=== PATIENT | female | born 1965 | race Caucasian/White ===

== ENCOUNTER → 2021-08-29 | Day surgery (SDC) | payer BC ==
[2021-08-29] VITALS (8 sets, daily range): BP systolic 106–131; BP diastolic 60–80
[~2021-08-29] VITALS: Ht 167.6 cm; Wt 94.2 kg
[~2021-08-29] MED LIST: BUPIVAcaine 0.5% inj/PF 30 ML ONE; BUPIVAcaine 0.5% inj/PF 30 ml vial IJ ONE; FENTANYL CITRATE/PF 50 MCG/1 ML VIAL ONE; NO HOME MEDS; ROPIVAcaine 0.5% (5mg/ml) 30ml vial ONE; VANCOMYCIN 1,500MG inj. 1,500 MG in dextrose 5% water 500ml 300 ML IV ONE; cefazolin/dext.iso 2gm/50ml IV ONE; famotidine 20mg tablet PO ONE; meperidine/PF 25mg/ml syringe IV PRN; midazolam 1 mg/ML 2ml injection ONE; morphine 2 MG/ML inj. syringe IV PRN; morphine 4 MG/ML inj SYRINge IV PRN; ondansetron/PF 4mg/2ml inj IV PRN; ondansetron/PF 4mg/2ml inj ONE; proCHLORperazine 10 MG/2 ml inj IV PRN; propofol inj 20 ML IV ONE; ringers solution, lacted 1,000 ML IV SCH
[2021-08-29 13:14] LABS: BASOPHILS % (AUTO) 0.7 % (0-1); EOSINOPHILS # (AUTO) 0.1 X10'3 (0-0.9); LYMPHOCYTES # (AUTO) 1.6 X10'3 (1.1-4.8); LYMPHOCYTES % (AUTO) 27.7 % (21-51); MEAN CORPUSCULAR HGB CONC 33.9 g/dL (33.0-36.5); MEAN CORPUSCULAR VOLUME 91.4 FL (78-98); MEAN PLATELET VOLUME 8.5 FL (7.4-10.4); MONOCYTES # (AUTO) 0.4 X10'3 (0-0.9); MONOCYTES % (AUTO) 6.8 % (2-12); NEUTROPHILS # (AUTO) 3.7 X10'3 (1.8-7.7); NEUTROPHILS % (AUTO) 63.8 % (42-75); PRE OP HEMATOCRIT 40.6 % (35.0-45.0); PRE OP HEMOGLOBIN 13.8 g/dL (12.0-16.0); PRE OP PLATELET COUNT 282 X10'3 (140-440); RED BLOOD COUNT 4.44 X10'6 (4.20-5.60); RED CELL DISTRIBUTION WIDTH 12.9 % (11.5-14.5)
[2021-08-29 13:48] LABS: ALANINE AMINOTRANSFERASE 46 U/L (12-78); ALBUMIN 3.9 G/DL (3.4-5.0); ALBUMIN/GLOBULIN RATIO 1.3 (1.1-1.5); ALKALINE PHOSPHATASE 67 IU/L (46-116); ANION GAP 10 (8-16); ASPARTATE AMINO TRANSFERASE 24 U/L (10-37); BILIRUBIN,TOTAL 0.6 MG/DL (0.1-1.0); BLOOD UREA NITROGEN 10 MG/DL (7-18); BUN/CREATININE RATIO 13.5 (6.6-38.0); CHLORIDE 106 MMOL/L (99-107); CREATININE 0.74 MG/DL (0.40-0.90); GLUCOSE 94 MG/DL (70-104); POTASSIUM 4.2 MMOL/L (3.5-5.1); SODIUM 143 MMOL/L (135-145); TOTAL CARBON DIOXIDE 26.7 MMOL/L (24-32); TOTAL PROTEIN 6.8 G/DL (6.4-8.2); eGFR 81 ML/MIN
--- NOTE | 2021-08-29 16:35 | NUR ---
Received from OR via [facility] , accompanied by Anesthesiologist DR. FLYNN and report given by Anesthesiolgist. MASK 10 LIITERS, PIV 20 GAUGE RIGHT HAND, VSS, SLING ON LEFT ARM, LR AT 100 RUNNING.
--- NOTE | 2021-08-29 16:40 | NUR ---
Received from OR via [facility] , accompanied by Anesthesiologist DR FLYNN and report given by Anesthesiolgist. MASK 10 LITERS, VSS, PIV 20 GAUAGE RIGHT HAND, SPLINT WITH SLING ON LEFT HAND AND FOREARM. Addendum: 08/29/21 at 1646 by Rudy Perez RN, RN Amended: Links added.
--- NOTE | 2021-08-29 17:49 | NUR ---
LUZMA'Harshal PIV NO COMPLICATIONS, VSS, INSTRUCTED PATIENT ON THE IMPORTANCE OF USING THE INCENTIVE SPIROMETER AND EDUCATED ON THE USE OF THE INCENTIVE SPIROMETER, HAD PATIENT COUGH AND DEEP BREATHE SEVERAL TIMES. HELPED PATIENT DRESS AND PUT HER SLING BACK ON AND EDUCTED PATIENT ON ELEVATING HER ARM FOR TWO DAYS. PATIENT VERBALIZED AN UNDERSTANDING OF ALL DISCHARGE INSTRUCTIONS AND THE USE OF THE INCENTIVE SPIROMETER. DISCHARGE CRITERIA MET FOR THIS PATIENT. Addendum: 08/29/21 at 1756 by Sujey Jaime RN Amended: Links added.
--- NOTE | 2021-08-29 17:49 | NUR ---
EDUCATED PATIENT ON WIGGLING FINGERS AND THUMB FREQUENTLY Addendum: 08/29/21 at 1800 by Sujey Jaime RN Amended: Links added.
== END | disposition home or self-care (01) ==
LOC: PAS 10:56
PROVIDERS: ATTEND Orthopaedic Surgery
DX: S52.572A Other intraarticular fracture of lower end of left radius, initial encounter for closed fracture (principal); M19.072 Primary osteoarthritis, left ankle and foot; E66.8 Other obesity; Z68.33 Body mass index [BMI] 33.0-33.9, adult; G89.18 Other acute postprocedural pain; Z20.822 Contact with and (suspected) exposure to COVID-19; Z79.899 Other long term (current) drug therapy; Z98.890 Other specified postprocedural states; Z72.89 Other problems related to lifestyle; X50.0XXA Overexertion from strenuous movement or load, initial encounter; Y93.89 Activity, other specified; Y92.89 Other specified places as the place of occurrence of the external cause; Y99.8 Other external cause status
CPT/HCPCS: 25608; 36415; 64415; 76942; 80053; 82948; 85025; 87635; 93005; C1713; C9803; J2250; J2405; J2704; J2795; J3010; J3370; J7030; J7060; J7120; S0020; Z7506; Z7508; Z7512; A4215; A4618; A6250; A6449; A7000; J7040